=== PATIENT | male | born 1950 | race Caucasian/White ===

== ENCOUNTER → 2020-08-13 08:37 | Outpatient (BNVA) | payer OTHER, SELFPAY | PROVIDERS: Visit Provider Urology ==

== ENCOUNTER → 2022-01-27 08:36 | Outpatient (BNVA) | payer OTHER, SELFPAY | PROVIDERS: PCP Internal Medicine; Visit Provider Urology | DX: N40.1 Benign prostatic hyperplasia with lower urinary tract symptoms (principal); N13.8 Other obstructive and reflux uropathy | CPT/HCPCS: 51798 ==

== ENCOUNTER 2022-06-29 12:13 | Emergency (ER) | payer OTHER, SELFPAY ==
--- NOTE | ~2022-06-29 | CT_ITS ---
EXAMINATION: CT HEAD WITHOUT CONTRAST CLINICAL INFORMATION: Dizziness, hypertension, urgency COMPARISON: None TECHNIQUE: Contiguous axial imaging was performed from the skull base to vertex without intravenous administration of contrast. Additional 2-D coronal and sagittal reformatted images are generated on the CT workstation and uploaded to PACS. This CT examination was performed using dose optimization techniques as appropriate, variously including the following: *Automated exposure control *Adjustment of mA and/or kV according to patient size (this includes techniques or standardized protocols for targeted exams where dose is matched to indication/reason for exam; i.e. extremities or head) *Use of iterative reconstruction technique DLP: 705 mGy-cm FINDINGS: There is no intracranial hemorrhage, hematoma, or extra-axial fluid collection. The ventricles are normal in size. There is no hydrocephalus, edema, or mass effect. The joseph-white matter differentiation appears well preserved . There are mild atrophic changes with some accentuation of the cortical sulci and fissures and cisterns. There is minor periventricular gliosis adjacent to left frontal horn consistent with mild small vessel ischemic change. There is no visible acute territorial infarct or mass lesion. The calvarium appears intact. There is no pneumocephalus or orbital emphysema. The visualized sinuses and middle ears and mastoid air cells show no significant mucosal thickening. There are no air-fluid levels. CT/CT head/brain wo IV con IMPRESSION: No acute intracranial abnormality.
[2022-06-29 12:38] VITALS: BP 198/82; PULSE 68; RESP 16; TEMP 36.7; O2SAT 97; BMI 28.1
--- NOTE | 2022-06-29 12:39 | ED_ITS ---
HPI - General Adult General Chief complaint: Dizziness <GINI Montero - Last Filed: 06/29/22 12:52> Stated complaint: HBP/Dizziness <GINI Montero - Last Filed: 06/29/22 12:52> Time Seen by Provider: 06/29/22 15:51 <GINI Montero - Last Filed: 06/29/22 12:52> Source: patient and family () <GINI Pickens - Last Filed: 06/29/22 16:28> Mode of arrival: ambulatory <GINI Pickens - Last Filed: 06/29/22 16:28> Limitations: no limitations <GINI Pickens Last Filed: 06/29/22 16:28> History of Present Illness HPI narrative: Patient is a 72 year old assigned male at with a history of HTN presenting to the emergency department today with intermittent lightheadedness. Patient states that he recently had his hypertension medications changed, with his lisinopril increased to 10mg BID and HCTZ increased to 25mg PO daily. Patient states that his episodes of lightheadedness happen when he is getting up and walking but when he stands still - it resolves. Patient denies any current dizziness, lightheadedness, abdominal pain, nausea, vomiting, fever, chills, blurry vision, double vision, loss of vision, chest pain, difficulty breathing, shortness of breath, back pain, night sweats, pain with urination, increased urinary frequency, increased urinary urgency, blood in his urine or stool, syncope or a near syncopal episode, recent trauma or falls, bowel incontinence, bladder incontinence, bowel retention, bladder retention, or any other complaints at this time. <GINI Pickens - Last Filed: 06/29/22 16:28> Severity: mild <GINI Pickens - Last Filed: 06/29/22 16:28> Severity scale (1-10): 2 <GINI Pickens Last Filed: 06/29/22 16:28> Relieving factors: none <GINI Pickens Last Filed: 06/29/22 16:28> Exacerbating factors: none <GINI Pickens Last Filed: 02/22/23 16:28> Associated symptoms: denies other symptoms <GINI Pickens Last Filed: 06/29/22 16:28> Treatments prior to arrival: none <GINI Pickens Last Filed: 06/29/22 16:28> Related Data Home medications: Home Medications Medication Instructions Recorded Confirmed gemfibrozil 600 mg tablet 600 mg PO DAILY 08/13/20 hydrochlorothiazide 12.5 mg tablet 12.5 mg PO DAILY 08/13/20 lisinopril 5 mg tablet 5 mg PO DAILY 08/13/20 pravastatin 40 mg tablet 40 mg PO BEDTIME 08/13/20 diclofenac sodium 75 mg 75 mg PO BID 01/26/22 tablet,delayed release omeprazole 40 mg capsule,delayed 40 mg PO QAM PRN heartburn 01/26/22 release rosuvastatin 10 mg tablet 10 mg PO BEDTIME 01/26/22 Previous Rx's Medication Instructions Recorded tamsulosin 0.4 mg capsule 0.4 mg PO DAILY 90 days #90 caps 03/17/22 <GINI Montero - Last Filed: 06/29/22 12:52> Allergies/adverse reactions: Allergies Allergy/AdvReac Type Severity Reaction Status Date / Time penicillin G Allergy Unknown Unknown Verified 06/29/22 12:51 <GINI Montero Last Filed: 06/29/22 12:52> Review of Systems Constitutional: Constitutional: Reports no additional constitutional complaints, Denies chills, Denies fever(s) and Denies night sweats <GINI Pickens Last Filed: 06/29/22 16:28> Eyes: Eyes: Reports no additional eye complaints, Denies blurry vision, Denies change in vision, Denies diplopia, Denies eye discharge, Denies loss of vision and Denies eye pain <GINI Pickens Last Filed: 06/29/22 16:28> ENT: Denies dizziness <GINI Pickens Last Filed: 06/29/22 16:28> Cardiovascular: Cardiovascular: Reports no additional cardiovascular complaint s, Denies chest pain, Denies lightheadedness, Denies Loss of Consciousness and Denies dyspnea <GINI Pickens Last Filed: 06/29/22 16:28> Respiratory: Respiratory: Reports no additional respiratory complaints and Denies dyspnea <GINI Pickens Last Filed: 06/29/22 16:28> Gastrointestinal: Gastrointestinal: Reports no additional gastrointestinal complaints, Denies abdominal pain, Denies melena, Denies hematochezia, Denies change in bowel habits and Denies change in stool character <GINI Pickens Last Filed: 06/29/22 16:28> Genitourinary: Genitourinary: Reports no additional male genitourinary complaints, Denies hematuria, Denies oliguria, Denies difficulty urinating, Denies dysuria, Denies urinary frequency, Denies urinary hesitancy, Denies urinary incontinence and Denies urinary urgency <GINI Pickens Last Filed: 06/29/22 16:28> Musculoskeletal: Musculoskeletal: Reports no additional musculoskeletal complaints, Denies numbness and Denies tingling <GINI Pickens Last Filed: 06/29/22 16:28> Neurologic: Denies dizziness, Denies loss of vision, Denies numbness and Denies tingling <GINI Pickens Last Filed: 06/29/22 16:28> Comments: intermittent lightheadedness <GINI Pickens Last Filed: 06/29/22 16:28> Psychiatric: Psychiatric: Reports no additional psychiatric complaints <GINI Pickens Last Filed: 06/29/22 16:28> Endocrine: Endocrine: Reports no additional endocrine complaints <GINI Pickens Last Filed: 06/29/22 16:28> Hematologic/Lymphatic: Hematologic/Lymphatic: Reports no additional hematologic/lymphatic complaints <GINI Pickens Last Filed: 06/29/22 16:28> Allergic/Immunologic: Allergic/Immunologic: Reports no additional allergic/immunologic complaints <GINI Pickens Last Filed: 06/29/22 16:28> PMFSH Past Medical History Attestation statement: The following information was validated with the patient. (all information validated with the patient's ) <GINI Pickens Last Filed: 06/29/22 16:28> Source: old records reviewed, obtained from family (patient's ) and nursing notes reviewed <GINI Pickens Last Filed: 06/29/22 16:28> Medical History: Medical History BPH loc w urin obs/LUTS Dysuria HTN (hypertension) Hyperlipidemia <GINI Montero - Last Filed: 06/29/22 12:52> Surgical History: Surgical History Hx of hand surgery <GINI Montero - Last Filed: 06/29/22 12:52> Family History Family History: Family History Father No problems noted. Mother No problems noted. <GINI Montero - Last Filed: 06/29/22 12:52> Social History Social History: Social History Advance Directives: No Advance Directives Information Provided: Yes <GINI Montero - Last Filed: 06/29/22 12:52> Physical Exam ED Vital Signs: Vital Signs - 24 hr 06/29/22 12:38 06/29/22 15:54 Temperature 98.0 F 98.8 F Pulse Rate 68 65 Respiratory Rate 16 18 Blood Pressure 198/82 H 179/80 H Pulse Oximetry 97 95 Oxygen Delivery Method Room Air Room Air BMI result Body Mass Index 28.1 <GINI Montero - Last Filed: 06/29/22 12:52> Vital Signs - 24 hr 06/29/22 12:38 06/29/22 15:54 Temperature 98.0 F 98.8 F Pulse Rate 68 65 Respiratory Rate 16 18 Blood Pressure 198/82 H 179/80 H Pulse Oximetry 97 95 Oxygen Delivery Method Room Air Room Air BMI result Body Mass Index 28.1 <GINI Pickens - Last Filed: 06/29/22 16:28> Const General: cooperative, no acute distress, alert and awake <GINI Pickens - Last Filed: 06/29/22 16:28> Nutritional Appearance: well nourished <GINI Pickens - Last Filed: 06/29/22 16:28> Orientation/consciousness: patient oriented x3 <GINI Pickens - Last Filed: 06/29/22 16:28> Limitations: no limitations <Eloisa Naik [facility] Last Filed: 06/29/22 16:28> HENMT Head: Yes normal to inspection and Yes atraumatic <Eloisa Naik [facility] Last Filed: 06/29/22 16:28> Ears: hearing grossly normal bilaterally and external ears normal <Eloisa Naik [facility] Last Filed: 06/29/22 16:28> General nose exam: Normal external nose present, no nasal discharge noted and no epistaxis <Eloisa Naik [facility] Last Filed: 06/29/22 16:28> Face and sinus: Yes normal facial exam, No abrasion and No laceration <Eloisa Goldsmithrenata [facility] Last Filed: 06/29/22 16:28> Mouth: Normal oral and palatal mucosa present, no drooling and no muffled voice <Eloisa Naik [facility] Last Filed: 06/29/22 16:28> Eyes General: appearance normal, both eyes and all related structures <Eloisa Goldsmithrenata [facility] Last Filed: 06/29/22 16:28> Periorbital: periorbital findings normal <Eloisa Naik [facility] Last Filed: 06/29/22 16:28> Eyelids: Yes eyelids normal <Eloisa Naik [facility] Last Filed: 06/29/22 16:28> Conjunctivae: conjunctivae normal <Eloisa Naik [facility] Last Filed: 06/29/22 16:28> Pupils: Equal, round and reactive pupils present <Eloisa Goldsmithrenata [facility] Last Filed: 06/29/22 16:28> EOM: EOMs intact bilaterally <Eloisa Naik [facility] Last Filed: 06/29/22 16:28> Neck Neck: Yes normal visual inspection, Yes full ROM and Yes no lymphadenopathy <Eloisa Goldsmithrenata [facility] Last Filed: 06/29/22 16:28> Chest Chest palpation & inspection: normal inspection of the chest <Eloisa Goldsmithrenata [facility] Last Filed: 06/29/22 16:28> Resp Effort & Inspection: normal respiratory effort and able to speak in complete sentences <Eloisa Gumaro [facility] Last Filed: 06/29/22 16:28> Auscultation: clear to auscultation bilaterally <Eloisa Naik PA - Last Filed: 06/29/22 16:28> Cardio Rate: regular rate <Eloisa Naik PA - Last Filed: 06/29/22 16:28> Rhythm: regular rhythm <Eloisa Naik PA - Last Filed: 06/29/22 16:28> GI Inspection: Yes normal to inspection <Eloisa Naik PA - Last Filed: 06/29/22 16:28> Palpation (GI): Soft to palpation, not firm, nontender and no guarding <Eloisa Naik PA - Last Filed: 06/29/22 16:28> Neuro General: patient oriented x3 and moves all extremities <Eloisa Naik PA - Last Filed: 06/29/22 16:28> Cranial nerves: Yes Equal, round and reactive pupils present <Eloisa Naik PA - Last Filed: 06/29/22 16:28> Cognition (Neuro): normal cognition <Eloisa Naik PA - Last Filed: 06/29/22 16:28> Motor exam (neuro): 5/5 motor strength present throughout <Eloisa Naik PA - Last Filed: 06/29/22 16:28> Sensory Exam: Normal double simultaneous stimulation for sensation <Eloisa Naik PA - Last Filed: 06/29/22 16:28> Coordination: [id number] test normal <Eloisa Naik PA - Last Filed: 06/29/22 16:28> Extrem General: Yes normal to inspection, Yes full ROM and Yes capillary refill normal <Eloisa Naik PA - Last Filed: 06/29/22 16:28> Psych Appearance: grossly normal <Eloisa Naik PA - Last Filed: 06/29/22 16:28> Mental Status: mental status grossly normal <Eloisa Naik PA - Last Filed: 06/29/22 16:28> Affect: normal affect <Eloisa Naik PA - Last Filed: 06/29/22 16:28> Attitude: cooperative <Eloisa Naik PA - Last Filed: 06/29/22 16:28> Thought process: Normal thought process present <Eloisa Naik PA - Last Filed: 06/29/22 16:28> Thought content: Normal thought content present <GINI Pickens - Last Filed: 0 06/29/22 16:28> Insight: Good insight present (Psych) <GINI Pickens - Last Filed: 06/29/22 16:28> Course Course Course Narrative: RME: 72 y/o M, hx of HTN and vertigo, presenting for evaluation of dizziness and lightheadedness since last night. Was seen by urgent care this afternoon due to vertigo like symptoms, and his bp was 187/78 and was sent here. PCP doubled dosages of HTN and lisinopril 3 weeks ago. No CP/RENTERIA. Manual BPs in triage 190's systolic/80s diastolic. Labs and EKG ordered. <GINI Montero - Last Filed: 06/29/22 12:52> Medical Decision Making Medical Decision Making MDM Narrative: Patient is a 52 year old assigned male at with a history of hypertension presenting to the emergency department today with intermittent lightheadedness. Patient's physical exam was unremarkable. Patient's blood work was unremarkable. Patient's EKG was unremarkable. Patient's head CT showed no acute process. I explained my physical exam findings as well as all test results to the patient and the patient's . I answered all questions asked by the patient and the patient's . Given the patient's symptoms and negative work up, I suspect the increase in his HCTZ to be a contributing factor. I recommended the patient go back down to 12.5 HCTZ, maintain his lisinopril dose, increase his fluid intake, and follow up with his PCP. I stressed the importance of the patient taking his other medications as prescribed. I stressed the importance of the patient following up with his primary care provider. I stressed the importance of the patient returning to the emergency department immediately if his symptoms were to worsen or if he were to develop any dizziness, shortness of breath, difficulty breathing, chest pain, blurry vision, loss of vision, nausea, vomiting, abdominal pain, fever, chills, back pain, or any other complaints. Patient and the patient's verbalized agreement and understanding with this treatment plan and discharge. <GINI Pickens - Last Filed: 06/29/22 16:28> Differential Diagnosis Differential Diagnoses: The differential diagnosis associated with the presentation includes <GINI Pickens Last Filed: 06/29/22 16:28> orthostatic hypotension <GINI Pickens - Last Filed: 06/29/22 16:28> Lab Data MDM Lab Attestation statement: I reviewed the patient's lab results. <GINI Pickens - Last Filed: 06/29/22 16:28> Result Diagrams: 06/29/22 12:59 06/29/22 12:59 <GINI Montero - Last Filed: 06/29/22 12:52> Labs: Lab Results 06/29/22 06/29/22 06/29/22 Range/Units 12:59 12:59 12:59 WBC 5.2 (4.8-10.8) X10*3/uL RBC 5.57 (4.60-5.80) X10*6/uL Hgb 15.8 (14.0-18.0) g/dl Hct 46.6 (42.0-52.0) % MCV 83.7 (80.0-98.0) fL MCH 28.4 (27.0-33.0) pg MCHC 33.9 (31.0-36.0) g/dl RDW 12.0 (11.0-16.0) % Plt Count 229 (160-400) X10*3/uL MPV 10.9 (9.4-12.4) fL Immature Gran % (Auto) 0.2 (0.0-0.4) % Neut % (Auto) 66.3 (45-73) % Lymph % (Auto) 22.4 (20-40) % [place] % (Auto) 9.7 (2-11) % Eos % (Auto) 0.6 (0-4) % Baso % (Auto) 0.8 (0-2) % Lymph # (Auto) 1.2 (1.2-4.9) X10*3/uL [place] # (Auto) 0.5 (0.1-1.2) X10*3/uL Eos # (Auto) 0.0 (0.0-0.4) X10*3/uL Baso # (Auto) 0.0 (0.0-0.2) X10*3/uL Abs Immat Gran (auto) 0.01 (0.00-0.03) X10*3/uL Absolute Neuts (auto) 3.4 (2.0-8.3) x10*3/uL Absolute Nucleated RBC 0.000 (0.0-0.012) X10*3/uL Nucleated RBC % (auto) 0.0 (0.0-0.2) /100WBC Sodium 135 (135-145) mmol/L Potassium 4.0 (3.3-5.1) mmol/L Chloride 98 (96-108) mmol/L Carbon Dioxide 27 (22-29) mmol/L Anion Gap 14 (12-20) BUN 15 (9-16) mg/dL Creatinine 1.08 (0.5-1.4) mg/dL Estim Creat Clear Calc 72.6 Estimated GFR > 60 Random Glucose 103 (60-115) mg/dL Calcium 9.6 (8.4-10.2) mg/dL Magnesium 1.7 (1.6-2.6) mg/dL Total Bilirubin 1.1 H (0.0-1.0) mg/dL Direct Bilirubin 0.3 (0.0-0.5) mg/dL AST 35 (5-37) U/L ALT 44 H (0-40) U/L Alkaline Phosphatase 46 (39-117) U/L Troponin I High Sens < 3.5 (<3.5-35.0) ng/L Total Protein 6.7 (6.5-8.0) g/dL Albumin 4.4 (3.5-5.0) g/dL <GINI Montero - Last Filed: 06/29/22 12:52> Lab Results 06/29/22 06/29/22 06/29/22 Range/Units 12:59 12:59 12:59 WBC 5.2 (4.8-10.8) X10*3/uL RBC 5.57 (4.60-5.80) X10*6/uL Hgb 15.8 (14.0-18.0) g/dl Hct 46.6 (42.0-52.0) % MCV 83.7 (80.0-98.0) fL MCH 28.4 (27.0-33.0) pg MCHC 33.9 (31.0-36.0) g/dl RDW 12.0 (11.0-16.0) % Plt Count 229 (160-400) X10*3/uL MPV 10.9 (9.4-12.4) fL Immature Gran % (Auto) 0.2 (0.0-0.4) % Neut % (Auto) 66.3 (45-73) % Lymph % (Auto) 22.4 (20-40) % [place] % (Auto) 9.7 (2-11) % Eos % (Auto) 0.6 (0-4) % Baso % (Auto) 0.8 (0-2) % Lymph # (Auto) 1.2 (1.2-4.9) X10*3/uL [place] # (Auto) 0.5 (0.1-1.2) X10*3/uL Eos # (Auto) 0.0 (0.0-0.4) X10*3/uL Baso # (Auto) 0.0 (0.0-0.2) X10*3/uL Abs Immat Gran (auto) 0.01 (0.00-0.03) X10*3/uL Absolute Neuts (auto) 3.4 (2.0-8.3) x10*3/uL Absolute Nucleated RBC 0.000 (0.0-0.012) X10*3/uL Nucleated RBC % (auto) 0.0 (0.0-0.2) /100WBC Sodium 135 (135-145) mmol/L Potassium 4.0 (3.3-5.1) mmol/L Chloride 98 (96-108) mmol/L Carbon Dioxide 27 (22-29) mmol/L Anion Gap 14 (12-20) BUN 15 (9-16) mg/dL Creatinine 1.08 (0.5-1.4) mg/dL Estim Creat Clear Calc 72.6 Estimated GFR > 60 Random Glucose 103 (60-115) mg/dL Calcium 9.6 (8.4-10.2) mg/dL Magnesium 1.7 (1.6-2.6) mg/dL Total Bilirubin 1.1 H (0.0-1.0) mg/dL Direct Bilirubin 0.3 (0.0-0.5) mg/dL AST 35 (5-37) U/L ALT 44 H (0-40) U/L Alkaline Phosphatase 46 (39-117) U/L Troponin I High Sens < 3.5 (<3.5-35.0) ng/L Total Protein 6.7 (6.5-8.0) g/dL Albumin 4.4 (3.5-5.0) g/dL <GINI Pickens - Last Filed: 06/29/22 16:28> Independent Interpretation I performed an independent interpretation of an: EKG <GINI Pickens - Last Filed: 06/29/22 16:28> Interpretation: Vent. Rate: 061 BPM ? ? Atrial Rate: 061 BPM P-R Int: 186 ms? QRS Dur: 102 ms QT Int: 412 ms ? ? ? P-R-T Axes: 011 -06 009 degrees QTc Int: 414 ms ? Normal sinus rhythm Normal ECG No previous ECGs available DD/ 1252 <GINI Pickens - Last Filed: 06/29/22 16:28> Radiology Impression Radiologist Impression: My interpretation is in agreement with the radiologist's impression of this imaging study. -------- EXAMINATION: CT HEAD WITHOUT CONTRAST CLINICAL INFORMATION: Dizziness, hypertension, urgency? COMPARISON: None TECHNIQUE: Contiguous axial imaging was performed from the skull base to vertex without intravenous administration of contrast.? Additional 2-D coronal and sagittal reformatted images are generated on the CT workstation and uploaded to PACS. This CT examination was performed using dose optimization techniques as appropriate, variously including the following: *Automated exposure control *Adjustment of mA and/or kV according to patient size (this includes techniques or standardized protocols for targeted exams where dose is matched to indication/reason for exam; i.e. extremities or head) *Use of iterative reconstruction technique DLP: 705 mGy-cm FINDINGS: There is no intracranial hemorrhage, hematoma, or extra-axial fluid collection.? The ventricles are normal in size. There is no hydrocephalus, edema, or mass effect.? The joseph-white matter differentiation appears well preserved .? There are mild atrophic changes with some accentuation of the cortical sulci and fissures and cisterns. There is minor periventricular gliosis adjacent to left frontal horn consistent with mild small vessel ischemic change. There is no visible acute territorial infarct or mass lesion. The calvarium appears intact. There is no pneumocephalus or orbital emphysema.? The visualized sinuses and middle ears and mastoid air cells show no significant mucosal thickening. There are no air-fluid levels. CT/CT head/brain wo IV con IMPRESSION: No acute intracranial abnormality. Dictated By: Wesley Carter MD Signed By: Electronically signed by Wesley Carter MD 06/29/22 1503 <GINI Pickens - Last Filed: 06/29/22 16:28> Independent Historian Clinical information obtained from an independent historian. History obtained from or confirmed by: Spouse <GINI Pickens - Last Filed: 06/29/22 16:28> Chronic Conditions Patient?s care impacted by: Hypertension (medication adjustments) <GINI Pickens - Last Filed: 06/29/22 16:28> Discharge Plan Discharge Clinical Impression: Intermittent lightheadedness <GINI Montero - Last Filed: 06/29/22 12:52> Patient Disposition: Home, Self-Care <GINI Montero - Last Filed: 06/29/22 12:52> Instructions: Lightheadedness (ED) <GINI Montero - Last Filed: 06/29/22 12:52> Additional Instructions: Go back to HCTZ dose of 12.5mg ONE DAILY. Starting keeping a blood pressure diary to share with your PCP. Follow up with your primary care provider. Return to the emergency department immediately if your symptoms worsen or if you develop any dizziness, shortness of breath, difficulty breathing, chest pain, blurry vision, loss of vision, nausea, vomiting, abdominal pain, fever, chills, back pain, or any other complaints. <GINI Montero - Last Filed: 06/29/22 12:52> Prescriptions: No Action tamsulosin 0.4 mg capsule 0.4 mg PO DAILY 90 Days Qty: 90 3RF gemfibrozil 600 mg tablet 600 mg PO DAILY pravastatin 40 mg tablet 40 mg PO BEDTIME hydrochlorothiazide 12.5 mg tablet 12.5 mg PO DAILY lisinopril 5 mg tablet 5 mg PO DAILY diclofenac sodium 75 mg tablet,delayed release (DR/EC) 75 mg PO BID rosuvastatin 10 mg tablet 10 mg PO BEDTIME omeprazole 40 mg capsule,delayed release(DR/EC) 40 mg PO QAM PRN (Reason: heartburn) <GINI Montero - Last Filed: 06/29/22 12:52> Print Language: [place]ian <GINI Montero - Last Filed: 06/29/22 12:52>
--- NOTE | 2022-06-29 12:46 | ECG_ITS ---
Test Reason : HIGH BP Blood Pressure : / mmHG Vent. Rate : 061 BPM Atrial Rate : 061 BPM P-R Int : 186 ms QRS Dur : 102 ms QT Int : 412 ms P-R-T Axes : 011 -06 009 degrees QTc Int : 414 ms Normal sinus rhythm Normal ECG No previous ECGs available Referred By: Rosi Gloria Electronically Signed By:CHARLES MERA
[2022-06-29 13:07] LABS: Basophils Percent Auto 0.8 % (0-2); Eosinophils Percent Auto 0.6 % (0-4); Hematocrit 46.6 % (42.0-52.0); Hemoglobin 15.8 g/dl (14.0-18.0); Imm Gran Abs Auto 0.01 X10*3/uL (0.00-0.03); Imm Gran Pct Auto 0.2 % (0.0-0.4); Lymphocytes Absolute Auto 1.2 X10*3/uL (1.2-4.9); Lymphocytes Percent Auto 22.4 % (20-40); MANUAL DIFF FLAG NO; Mean Corpuscular HGB Conc 33.9 g/dl (31.0-36.0); Mean Corpuscular Hemoglobin 28.4 pg (27.0-33.0); Mean Corpuscular Volume 83.7 fL (80.0-98.0); Mean Platelet Volume 10.9 fL (9.4-12.4); Monocytes Absolute Auto 0.5 X10*3/uL (0.1-1.2); Monocytes Percent Auto 9.7 % (2-11); Neutrophils Absolute Auto 3.4 x10*3/uL (2.0-8.3); Neutrophils Percent Auto 66.3 % (45-73); Platelet Count 229 X10*3/uL (160-400); Red Blood Count 5.57 X10*6/uL (4.60-5.80); White Blood Count 5.2 X10*3/uL (4.8-10.8)
[2022-06-29 13:45] LABS: Alanine Aminotransferase 44 U/L (0-40); Albumin Level 4.4 g/dL (3.5-5.0); Alkaline Phosphatase 46 U/L (39-117); Anion Gap 14 (12-20); Aspartate Amino Transferase 35 U/L (5-37); Bilirubin Direct 0.3 mg/dL (0.0-0.5); Bilirubin Total 1.1 mg/dL (0.0-1.0); Blood Urea Nitrogen 15 mg/dL (9-16); Calcium 9.6 mg/dL (8.4-10.2); Carbon Dioxide 27 mmol/L (22-29); Chloride 98 mmol/L (96-108); Creatinine Clr Calc Pharmacy 72.6; Estimated Glomerular Filt Rate > 60; Glucose Random 103 mg/dL (60-115); Magnesium 1.7 mg/dL (1.6-2.6); Sodium 135 mmol/L (135-145); Total Protein 6.7 g/dL (6.5-8.0)
[2022-06-29 14:01] LABS: Troponin-I High Sensitivity < 3.5 ng/L (<3.5-35.0)
[2022-06-29 15:54] VITALS: BP 179/80; PULSE 65; RESP 18; TEMP 37.1; O2SAT 95
== END 2022-06-29 17:00 | disposition home or self-care (01) ==
PROVIDERS: Physician Assistant; Emergency Provider Emergency Medicine
DX: R42 Dizziness and giddiness (principal); I10 Essential (primary) hypertension; R51.9 Headache, unspecified; I16.0 Hypertensive urgency; Z79.899 Other long term (current) drug therapy
CPT/HCPCS: 36415; 70450; 80048; 80076; 83735; 84484; 85025; 93005; 99284

== ENCOUNTER 2023-01-31 08:25 | Outpatient (AMB) | payer OTHER, SELFPAY ==
--- NOTE | 2023-01-31 08:30 | A.OFFVIS_ITS ---
Intake Intake Visit Reasons: 1Y PSA(SET) Intake Note: Patient is Present for Follow Up PSA/PVR Urology Medication: Tamsulosin Antibiotic Allergies: Penicillin Blood Thinners: None [facility] PVR: 43 Compliants: No complaints at this time Allergies penicillin G Allergy (Unknown, Verified 01/31/23 08:35) Unknown HPI HPI Comments History of Present Illness Details Omar is a pleasant male. He is a patient of Dr Weiss. He seen for the following urologic conditions - lower urinary tract symptoms with post void dribbling Twelve month follow-up PVR 45 Struggling with his golf game Continue PSA Continues with tamsulosin Occasional postvoid dribbling Lower urinary tract symptoms with postvoid dribbling Weakness of stream, nocturia Therapy is tamsulosin PSA 05/28 1.0, 11/26 0.9 PFSH Medical History Dysuria Hyperlipidemia HTN (hypertension) BPH loc w urin obs/LUTS Surgical History Hx of hand surgery Family History Father No problems noted. Mother No problems noted. Review of Systems Const Denies chills and Denies fever(s) Card Reports no additional complaints and Denies syncope Resp Denies cough GI Denies abdominal pain and Denies heartburn Reports as per HPI and Denies change in libido Neuro Denies syncope Psych Denies change in libido Endo Denies change in libido Physical Exam Const General: cooperative, healthy appearing, comfortable and no acute distress Orientation/consciousness: patient oriented x3 HEENT Face and sinus: Yes normal facial exam Mouth: moist mucous membranes Neck Neck: Yes normal visual inspection, Yes full ROM and Yes trachea midline Chest Chest palpation & inspection: normal inspection of the chest Resp Effort & Inspection: normal respiratory effort, able to speak in complete sentences and no respiratory distress GI Inspection: Yes normal to inspection Back/Spine/Pelvis Cervical Spine: normal cervical lordosis Thoracic/Lumbar Spine: thoracic and lumbar spine normal to inspection Skin General skin exam: no rashes or lesions noted Neuro General: patient oriented x3, gait normal, tone normal and moves all extremities Extrem General: Yes normal to inspection and Yes capillary refill normal Office Procedures Post Void Residual Post Residual Void Post Void Residual (PVR): 43 [id number] Void Residual by ultrasound Results AMB Urinalysis, Automated UA Leukoctes 0 Sangeeta/uL Last Edit by Veronica Baca [facility] on 01/31/23 08:39 UA Nitrite Negative Last Edit by Veronica Baca A on 01/31/23 08:39 UA Urobilinogen 0.2 mg/dL Last Edit by Veronica Baca A on 01/31/23 08:3 9 UA Protein 0 mg/dL Last Edit by Veronica Baca A on 01/31/23 08:39 UA pH 7.0 Last Edit by Veronica Baca A on 01/31/23 08:39 UA Blood 0 Adalid/uL Last Edit by Veronica Baca A on 01/31/23 08:39 UA Specific Rhodell 1.010 Last Edit by Veronica Baca A on 01/31/23 08: 39 UA Ketone Negative Last Edit by Veronica Baca A on 01/31/23 08:39 UA Bilirubin 0 mg/dL Last Edit by Veronica Baca A on 01/31/23 08:39 UA Glucose 0 mg/dL Last Edit by Veronica Baca A on 01/31/23 08:39 Results Reviewed Results Reviewed: Laboratory Last Values Urine pH (Auto) 7.0 01/31/23 08:37 Specific Rhodell (Auto) 1.010 01/31/23 08:37 Urine Protein (Auto) 0 mg/dL 01/31/23 08:37 Glucose (UA)(Auto) 0 mg/dL 01/31/23 08:37 Urine Ketones (Auto) Negative 01/31/23 08:37 Urine Blood (Auto) 0 Adalid/uL 01/31/23 08:37 Urine Nitrite (Auto) Negative 01/31/23 08:37 Urine Bilirubin (Auto) 0 mg/dL 01/31/23 08:37 Urine Urobilinogen (Auto) 0.2 mg/dL 01/31/23 08:37 Leukocyte Esterase (Auto) 0 Sangeeta/uL 01/31/23 08:37 Assessment & Plan Assessment & Plan (1) BPH w urinary obs/LUTS: Comment: Twelve month follow-up Code(s): N40.1 - Benign prostatic hyperplasia with lower urinary tract symptoms; N13.8 - Other obstructive and reflux uropathy Plan Twelve month follow-up Orders: Orders AMB Post Void Residual by ultrasound Today N13.8 - Other obstructive and reflux uropathy, N40.1 - Benign prostatic hyperplasia with lower urinary tract symptoms AMB Urinalysis Automated Today N13.8 - Other obstructive and reflux uropathy, N40.1 - Benign prostatic hyperplasia with lower urinary tract symptoms, Z13.9 - Encounter for screening, unspecified Patient Instructions: Imaging studies, laboratory and physical exam results were discussed and reviewed in detail. No major barriers to patient understanding were identified. An opportunity to ask questions regarding the treatment plan was provided. All questions were answered. The patient expressed understanding and agreement with the above treatment plan. The patient is aware they should contact our office by phone for worsening of their current condition or the appearance of new urologic symptoms. Compliance is encouraged with any medications and followup testing that is ordered. It is a privilege to participate in the urologic care of your patient. If you have any questions or concerns regarding treatment for the above conditions, or other urologic issues, please do not hesitate to contact me. The office telephone contact is [phone]. This note is constructed using voice recognition software. While every effort has been made to ensure accuracy electronic technologist errors may have been included. Yours sincerely, Dr Matthew Rosas MD, [facility] - Urology Providers of Expert, Compassionate Care for the Genitourinary System Coding Level of Care Code Est Pt Level 4 (62987) Diagnoses BPH w urinary obs/LUTS N40.1; N13.8 CPT Codes Post Residual Void - PVR CPT Code: 89170-Xcgd Void Residual by ultrasound ([id number])
== END 2023-01-31 09:00 | disposition home or self-care (01) ==
PROVIDERS: PCP Internal Medicine; Visit Provider Urology
DX: Z13.9 Encounter for screening, unspecified (principal); N40.1 Benign prostatic hyperplasia with lower urinary tract symptoms; N13.8 Other obstructive and reflux uropathy
CPT/HCPCS: 99214

== ENCOUNTER → 2023-01-31 08:25 | Outpatient (BNVA) | payer OTHER, SELFPAY | PROVIDERS: Visit Provider Urology | DX: N40.1 Benign prostatic hyperplasia with lower urinary tract symptoms (principal); N13.8 Other obstructive and reflux uropathy; Z79.899 Other long term (current) drug therapy | CPT/HCPCS: 51798; 81003 ==

== ENCOUNTER 2024-02-01 08:22 | Outpatient (AMB) | payer OTHER, SELFPAY ==
--- NOTE | 2024-02-01 08:35 | MHC.OFFVIS ---
Intake Visit Reasons: 1Y Follow Up-PVR Intake Note: Patient is Present for 1 year Follow Up/ PVR Urology Medication: Tamsulosin Antibiotic Allergies: Penicillin Blood Thinners: None Pharmacy: [facility] PVR: 30mL Allergies penicillin G Allergy (Unknown, Verified 02/01/24 08:35) Unknown HPI Comments Details: Omar is a pleasant male. He is a patient of Dr Weiss. He seen for the following urologic conditions - lower urinary tract symptoms with postvoid dribbling Twelve month follow-up PVR 30 Continues with tamsulosin Occasional postvoid dribbling Will try coming off medication Golf game did improve - able to get off the T Lower urinary tract symptoms with postvoid dribbling Weakness of stream, nocturia Therapy is tamsulosin PSA 05/28 1.0, 11/26 0.9 PFSH Medical History Dysuria Hyperlipidemia HTN (hypertension) BPH loc w urin obs/LUTS Surgical History Hx of hand surgery Family History Father No problems noted. Mother No problems noted. Review of Systems Const Denies chills and Denies fever(s) Card Reports no additional complaints and Denies syncope Resp Denies cough GI Denies abdominal pain and Denies heartburn Reports as per HPI and Denies change in libido Neuro Denies syncope Psych Denies change in libido Endo Denies change in libido Physical Exam Const General: cooperative, healthy appearing, comfortable and no acute distress Orientation/consciousness: patient oriented x3 HEENT Face and sinus: Yes normal facial exam Mouth: moist mucous membranes Neck Neck: Yes normal visual inspection, Yes full ROM and Yes trachea midline Chest Chest palpation & inspection: normal inspection of the chest Resp Effort & Inspection: normal respiratory effort, able to speak in complete sentences and no respiratory distress GI Inspection: Yes normal to inspection Back/Spine/Pelvis Cervical Spine: normal cervical lordosis Thoracic/Lumbar Spine: thoracic and lumbar spine normal to inspection Skin General skin exam: no rashes or lesions noted Neuro General: patient oriented x3, gait normal, tone normal and moves all extremities Extrem General: Yes normal to inspection and Yes capillary refill normal Office Procedures Post Void Residual Post Residual Void Post Void Residual (PVR): 30 [id number] Void Residual by ultrasound Results AMB Urinalysis, Automated UA Leukoctes 0 Sangeeta/uL Last Edit by Indu Bond CMA on 02/01/24 08:50 UA Nitrite Negative Last Edit by Indu Bond, GAGAN on 02/01/24 08:50 UA Urobilinogen 0.2 mg/dL Last Edit by Indu Bond CMA on 02/01/24 08:50 UA Protein 15 mg/dL Last Edit by Indu Bond, GAAGN on 02/01/24 08:50 UA pH 6.0 Last Edit by Indu Bond, GAGAN on 02/01/24 08:50 UA Blood 0 Adalid/uL Last Edit by Indu Bond, GAGAN on 02/01/24 08:50 UA Specific Earle 1.025 Last Edit by Indu Bond, GAGAN on 02/01/24 08:50 UA Ketone Negative Last Edit by Indu Bond CMA on 02/01/24 08:50 UA Bilirubin 0 mg/dL Last Edit by Indu Bond CMA on 02/01/24 08:50 UA Glucose 0 mg/dL Last Edit by Indu Bond CMA on 02/01/24 08:50 Results Reviewed Results Reviewed: Laboratory Last Values Urine pH (Auto) 6.0 02/01/24 08:38 Specific Earle (Auto) 1.025 02/01/24 08:38 Urine Protein (Auto) 15 mg/dL 02/01/24 08:38 Glucose (UA)(Auto) 0 mg/dL 02/01/24 08:38 Urine Ketones (Auto) Negative 02/01/24 08:38 Urine Blood (Auto) 0 Adalid/uL 02/01/24 08:38 Urine Nitrite (Auto) Negative 02/01/24 08:38 Urine Bilirubin (Auto) 0 mg/dL 02/01/24 08:38 Urine Urobilinogen (Auto) 0.2 mg/dL 02/01/24 08:38 Leukocyte Esterase (Auto) 0 Sangeeta/uL 02/01/24 08:38 Assessment & Plan Assessment & Plan (1) BPH w urinary obs/LUTS: Comment: Twelve month follow-up Code(s): N40.1 - Benign prostatic hyperplasia with lower urinary tract symptoms; N13.8 - Other obstructive and reflux uropathy Category: Medical Plan Twelve month follow-up Orders: Orders AMB Urinalysis Automated Today Z13.9 - Encounter for screening, unspecified AMB Post Void Residual by ultrasound Today N13.8 - Other obstructive and reflux uropathy, N40.1 - Benign prostatic hyperplasia with lower urinary tract symptoms Medications: Refilled tamsulosin 0.4 mg PO DAILY 90 days 90 caps 3RF N13.8 - Other obstructive and reflux uropathy, N40.1 - Benign prostatic hyperplasia with lower urinary tract symptoms Patient Instructions: Imaging studies, laboratory and physical exam results were discussed and reviewed in detail. No major barriers to patient understanding were identified. An opportunity to ask questions regarding the treatment plan was provided. All questions were answered. The patient expressed understanding and agreement with the above treatment plan. The patient is aware they should contact our office by phone for worsening of their current condition or the appearance of new urologic symptoms. Compliance is encouraged with any medications and followup testing that is ordered. It is a privilege to participate in the urologic care of your patient. If you have any questions or concerns regarding treatment for the above conditions, or other urologic issues, please do not hesitate to contact me. The office telephone contact is [phone]. This note is constructed using voice recognition software. While every effort has been made to ensure accuracy financial market dealer errors may have been included. Yours sincerely, Dr Matthew Rosas MD, [facility] - Urology Providers of Expert, Compassionate Care for the Genitourinary System Coding Level of Care Code Est Pt Level 4 (17669) Diagnoses BPH w urinary obs/LUTS N40.1; N13.8 CPT Codes Post Residual Void - PVR CPT Code: 33353-Nmre Void Residual by ultrasound ([id number])
== END 2024-02-01 09:06 | disposition home or self-care (01) ==
PROVIDERS: PCP Internal Medicine; Visit Provider Urology
DX: N40.1 Benign prostatic hyperplasia with lower urinary tract symptoms (principal); N13.8 Other obstructive and reflux uropathy; Z13.9 Encounter for screening, unspecified
CPT/HCPCS: 99214

== ENCOUNTER → 2024-02-01 08:22 | Outpatient (BNVA) | payer OTHER, SELFPAY | PROVIDERS: PCP Internal Medicine; Visit Provider Urology | DX: N40.1 Benign prostatic hyperplasia with lower urinary tract symptoms (principal); N13.8 Other obstructive and reflux uropathy; Z79.899 Other long term (current) drug therapy | CPT/HCPCS: 51798; 81003 ==

== ENCOUNTER 2025-01-30 08:32 | Outpatient (AMB) | payer OTHER, SELFPAY ==
--- NOTE | 2025-01-30 08:34 | MHC.OFFVIS ---
Intake Visit Reasons: 1y/PVR Intake Note: patient presents today for: 1yr/PVR urology medications: tamsulosin blood thinners: none today's PVR: 43mls Mechanical Press Operator Required: No Accompanied by: Self / Same As Patient Allergies penicillin G Allergy (Unknown, Verified 01/30/25 08:35) Unknown HPI Comments Details: Omar is a pleasant male. He is a patient of Dr Weiss. He seen for the following urologic conditions - lower urinary tract symptoms with postvoid dribbling Twelve month follow-up PVR remains low Continues with tamsulosin Occasional postvoid dribbling Uses tamsulosin every 2nd day Still working for [employer] did improve - able to get off the T Lower urinary tract symptoms with postvoid dribbling Weakness of stream, nocturia Therapy is tamsulosin PSA 05/28 1.0, 11/26 0.9 PFSH Medical History Dysuria Hyperlipidemia HTN (hypertension) BPH loc w urin obs/LUTS Surgical History Hx of hand surgery Family History Father No problems noted. Mother No problems noted. Review of Systems Const Denies chills and Denies fever(s) Card Reports no additional complaints and Denies syncope Resp Denies cough GI Denies abdominal pain and Denies heartburn Reports as per HPI and Denies change in libido Neuro Denies syncope Psych Denies change in libido Endo Denies change in libido Physical Exam Const General: cooperative, healthy appearing, comfortable and no acute distress Orientation/consciousness: patient oriented x3 HEENT Face and sinus: Yes normal facial exam Mouth: moist mucous membranes Neck Neck: Yes normal visual inspection, Yes full ROM and Yes trachea midline Chest Chest palpation & inspection: normal inspection of the chest Resp Effort & Inspection: normal respiratory effort, able to speak in complete sentences and no respiratory distress GI Inspection: Yes normal to inspection Back/Spine/Pelvis Cervical Spine: normal cervical lordosis Thoracic/Lumbar Spine: thoracic and lumbar spine normal to inspection Skin General skin exam: no rashes or lesions noted Neuro General: patient oriented x3, gait normal, tone normal and moves all extremities Extrem General: Yes normal to inspection and Yes capillary refill normal Assessment & Plan Assessment & Plan (1) BPH w urinary obs/LUTS: Comment: Twelve month follow-up Code(s): N40.1 - Benign prostatic hyperplasia with lower urinary tract symptoms; N13.8 - Other obstructive and reflux uropathy Category: Medical Plan Twelve month follow up office Patient Instructions: This note is constructed using voice recognition software. While every effort has been made to ensure accuracy tooling manager errors may have been included. Imaging studies, laboratory and physical exam results were discussed and reviewed in detail. No major barriers to patient understanding were identified. An opportunity to ask questions regarding the treatment plan was provided. All questions were answered. The patient expressed understanding and agreement with the above treatment plan. The patient is aware they should contact our office by phone for worsening of their current condition or the appearance of new urologic symptoms. Compliance is encouraged with any medications and followup testing that is ordered. It is a privilege to participate in the urologic care of your patient. If you have any questions or concerns regarding treatment for the above conditions, or other urologic issues, please do not hesitate to contact me. The office telephone contact is [phone]. Sincerely, Dr Matthew Rosas MD, [facility] - Urology Compassionate Specialist Care for the Genitourinary System Coding Level of Care Code Est Pt Level 4 (15643) Diagnoses BPH w urinary obs/LUTS N40.1; N13.8
--- OUTSIDE RECORDS SUMMARY | 2025-01-30 09:06 | XMS_ITS | Clinical Summary ---
Author Organization [facility] Address [address] [place] [address] Phone Care Team Providers Care Stockroom Associate Name Role Phone Carlos Weiss MD Primary Care Provider [phone] Allergies Active Allergy Reactions Criticality Noted Date Comments Penicillins 10/30/2024 Medications hydrALAZINE (APRESOLINE) 25 mg tablet Take 1 tablet (25 mg total) by mouth 3 (three) times a day. 10/21/2024 Active hydroCHLOROthia zide (HYDRODIURIL) 25 mg tablet Take 1 tablet (25 mg total) by mouth 1 (one) time each day. 09/25/2024 Active irbesartan (AVAPRO) 75 mg tablet Take 1 tablet (75 mg total) by mouth 1 (one) time each day. 09/27/2024 Active rosuvastatin (CRESTOR) 10 mg tablet Take 1 tablet (10 mg total) by mouth 1 (one) time each day. 10/21/2024 Active tamsulosin (FLOMAX) 0.4 mg 24 hr capsule Take 1 capsule (0.4 mg total) by mouth 1 (one) time each day. 08/26/2024 Active Active Problems No known active problems Encounters Date Type Department Care Team Description 01/08/2025 11:00 AM EDT Office Visit Orthopedic Surgery [facility] [address] [place] [address] [address] [place] [id number] Chanda Tripp PA Rotator cuff syndrome of right shoulder (Primary Dx) 11/25/2024 1:30 PM EDT Evaluation Outpatient Rehabilitation [address] [phone] Bruce Mathis PT Chronic right shoulder pain (Primary Dx); Impingement syndrome of right shoulder; Right shoulder pain 11/12/2024 Telephone Orthopedic Surgery [facility] [address] [facility] [address] [place] [phone] Pepe Beasley MD 10/30/2024 10:00 AM EDT Consult Orthopedic Surgery [facility] [address] [facility] [address] [place] [phone] Pepe Beasley MD Impingement syndrome of right shoulder (Primary Dx); Right shoulder pain from Last 3 Months Social History Tobacco Use Types Packs/Day Years Used Date Smoking Tobacco: Never Assessed Sex and Gender Information Value Date Recorded Sex Assigned at Male 11/06/2024 1:50 PM EDT Legal Sex Male 7:39 AM EST Gender Identity Male 11/06/2024 1:50 PM EDT Sexual Orientation Straight 11/06/2024 1: 50 PM EDT Obstetrics History Last Filed Vital Signs Vital Sign Reading Time Taken Comments Blood Pressure - - Pulse - - Temperature - - Respiratory Rate - - Oxygen Saturation - - Inhaled Oxygen Concentration - - Weight 88.5 kg (195 lb) 10/30/2024 10:01 AM EDT Height 180.3 cm (5' 11 ) 10/30/2024 10:01 AM EDT Body Mass Index 27.2 10/30/2024 10:01 AM EDT Plan of Treatment Health Maintenance Due Date Last Done Comments DTaP,Tdap,and Td Vaccines (1 - Tdap) 1970 Zoster Vaccines (1 of 2) 2001 Pneumococcal Vaccine: 50+ Years (2 of 2 - PPSV23) 01/29/2019 01/29/2018 Depression Screening 05/08/2024 Abdominal Aortic Aneurysm (AAA) Screen 09/16/2024 Cholesterol Screening (Lipid Panel) 09/16/2024 Colorectal Cancer Screening: Colonoscopy 09/16/2024 Falls Risk Assessment 09/16/2024 Hepatitis C Screening 09/16/2024 Social Influencers of Health Screening 09/16/2024 COVID-19 Vaccine (2024- season) 2025 03/14/2022, 03/03/2021, 08/18/2020, Additional history exists Influenza Vaccine (#1) 2025 , 2021, 01/29/2018, Additional history exists RSV Immunization Adult Patients (1 - 1-dose 75+ series) 2026 HIB Vaccines Aged Out No longer eligi ble based on patient's age to complete this topic HPV Vaccines Aged Out No longer eligi ble based on patient's age to complete this topic Hepatitis A Vaccines Aged Out No long er eligible based on patient's age to complete this topic Hepatitis B Vaccines Aged Out No long er eligible based on patient's age to complete this topic IPV Vaccines Aged Out No longer eligi ble based on patient's age to complete this topic MMR Vaccines Aged Out No longer eligi ble based on patient's age to complete this topic Meningococcal ACWY Vaccine Aged Out N o longer eligible based on patient's age to complete this topic Meningococcal B Vaccine Aged Out No l onger eligible based on patient's age to complete this topic RSV Immunization Patients Under 20 months Aged Out No longer eligible based on patient's age to complete this topic Varicella Vaccines Aged Out No longer eligible based on patient's age to complete this topic Procedures Procedure Name Priority Date/Time Associated Diagnosis Comments XR SHOULDER 2+ VIEWS RIGHT Routine 10/30/2024 9:58 AM EDT Right shoulder pain from Last 3 Months Results * XR Shoulder 2+ Views Right (10/30/2024 9:58 AM EDT) Anatomical Region Laterality Modality Upper Extremities, Shoulder Right Comp uted Radiography Narrative 10/30/2024 10:01 AM EDT Right shoulder x-rays October 30, 2024. AP, Grashey, Y lateral, axillary views. No acute osseous abnormalities. Good preservation of the glenohumeral articular cartilage. Mild degenerative changes of the acromioclavicular joint. Pepe Beasley MD IMG XR PROCEDURES Final Result from Last 3 Months Insurance MEDICARE [facility] Care Teams Stockroom Associate Relationship Specialty Start Date End Date Carlos Weiss MD [address] [place] [address] PCP - General Internal Medicine 09/16/24
--- OUTSIDE RECORDS SUMMARY | 2025-01-30 09:06 | XMS_ITS ---
Author Name [facility] Organization [facility] Care Team Organization Name Specialty Phone Email Start Date End [facility] Primary Care 11/23/20232023
== END 2025-01-30 09:15 | disposition home or self-care (01) ==
LOC: HO.HUSH 08:32
PROVIDERS: PCP Internal Medicine; Visit Provider Urology
DX: N40.1 Benign prostatic hyperplasia with lower urinary tract symptoms (principal); N13.8 Other obstructive and reflux uropathy; Z13.9 Encounter for screening, unspecified
CPT/HCPCS: 99214

== ENCOUNTER → 2025-01-30 08:32 | Outpatient (BNVA) | payer OTHER, SELFPAY | PROVIDERS: PCP Internal Medicine; Visit Provider Urology | DX: N40.1 Benign prostatic hyperplasia with lower urinary tract symptoms (principal) | CPT/HCPCS: 51798; 81003 ==